=== PATIENT | male | born 1965 ===

== ENCOUNTER 2017-10-27 05:21 | Day surgery (SDC) | payer OTHER ==
[2017-10-27] MEDS ORDERED: RECTICARE30 GM TOP (08:40)
[2017-10-27] MEDS ORDERED: PERCOCET 5-3251 EACH PO (08:40)
== END 2017-10-27 14:30 | disposition home or self-care (01) ==
LOC: CIR.AMB 05:21
DX: K60.1 Chronic anal fissure (principal)